=== PATIENT | male | born 2000 | race Asian ===

== ENCOUNTER 2024-08-16 11:36 | Emergency (ER) | payer OTHER ==
[~2024-08-16] VITALS: Ht 180.3 cm; Wt 47.7 kg
[2024-08-16 11:44] VITALS: BP 114/73; PULSE 83; RESP 17; TEMP 98.3; O2SAT 98
[2024-08-16] MEDS: IBUPROFEN 600 MG TABLET PO ONE (12:48)
[2024-08-16] MEDS ORDERED: IBUP-1492 PO (13:50)
== END 2024-08-16 13:55 | disposition home or self-care (01) ==
LOC: EMS 11:42
DX: S16.1XXA Strain of muscle, fascia and tendon at neck level, initial encounter (principal); S70.11XA Contusion of right thigh, initial encounter; S10.93XA Contusion of unspecified part of neck, initial encounter; V43.52XA Car driver injured in collision with other type car in traffic accident, initial encounter; Y93.89 Activity, other specified; Y92.410 Unspecified street and highway as the place of occurrence of the external cause; Y99.8 Other external cause status
CPT/HCPCS: 99282; Z7502; Z7610